=== PATIENT | male | born 1970 | race Caucasian/White ===

== ENCOUNTER 2017-07-02 14:29 | Inpatient (IN) ==
--- NOTE | 2017-07-01 22:33 | Discharge Summary ---
<Whitney Addison E - Last Filed: 07/01/17 22:31> Date of Encounter: 07/01/17 - Discharge Diagnosis (1) Painful orthopaedic hardware Priority: Primary Status: Chronic (2) History of total right hip arthroplasty Priority: Primary Status: Chronic (3) HTN (hypertension) Priority: Secondary Status: Chronic Qualifiers: Hypertension type: unspecified Qualified Code(s): I10 - Essential (primary ) hypertension (4) Diabetes mellitus Priority: Secondary Status: Chronic Qualifiers: Diabetes mellitus type: type 2 Diabetes mellitus complication status: with unspecified complications Diabetes mellitus chcf insulin use: without chcf use Qualified Code(s): E11.8 - Type 2 diabetes mellitus with unspecified complications (5) Gout Priority: Secondary Status: Chronic Qualifiers: Gout site: unspecified site Gout etiology: unspecified cause Chronicity: unspecified Qualified Code(s): M10.9 - Gout, unspecified (6) Obesity Priority: Secondary Status: Chronic Qualifiers: Obesity type: unspecified obesity type Obesity classification: unspecified obesity classification Serious obesity comorbidity presence: unspecified whether serious comorbidity present Qualified Code(s): E66.9 - Obesity, unspecified (7) Status post right hip replacement Priority: Primary Status: Acute - Discharge Medications Home Medications: Allopurinol [Zyloprim 100 MG] 100 mg PO HS 08/18/15 [History] Cetirizine HCl [Zyrtec] 10 mg PO DAILY 08/18/15 [History] Gabapentin [Neurontin] 100 mg PO BID 08/18/15 [History] Lisinopril/Hydrochlorothiazide [Zestoretic 10-12.5 mg Tablet] 1 each PO DAILY [History] Metoprolol [Lopressor] 50 mg PO BID 08/18/15 [History] Alogliptin Benzoate [Alogliptin] 12.5 mg PO DAILY 01/17/17 [History] Atorvastatin [Lipitor] 10 mg PO HS 01/17/17 [History] Baclofen 10 - 20 mg PO TID PRN 01/17/17 [History] Docusate [Colace] 100 mg PO BID #60 capsule 01/17/17 [Rx] Glimepiride [Amaryl] 1 mg PO DAILY 03/19/17 [History] HYDROcodone/Acet 7.5/325 mg [[place] 7.5-325 mg] 1 tab PO Q4H #30 tablet 03/19/17 [Rx] Dicyclomine [Bentyl] 10 mg PO QID PRN #40 capsule 05/16/17 [Rx] Aspirin Enteric Coated [Aspirin EC] 325 mg PO DAILY 21 Days #21 tablet. [Rx] HYDROcodone/Acet 5/325 mg [[place] 5-325 mg] 1 tab PO Q4-6H PRN 7 Days #35 tab 04/07 [Rx] Docusate [Colace] 100 mg PO BID PRN 07/02/17 [History] Ergocalciferol (VITAMIN D2) [Vitamin D2] 1,000 unit PO DAILY 07/02/17 [History] Gabapentin [Neurontin] 200 mg PO HS 07/02/17 [History] Allergies/Adverse Reactions: 3 Allergy/AdvReac Type Severity Reaction Status Date / Time Oxycodone [From Percocet] Allergy See Verified 03/19/17 10:20 Comments Primary care physician: KALIE Corral - Patient Status Disposition: Home, Self-Care Condition: Good - Discharge Instructions Follow Up With: Darby Garcia CNP [Primary Care Provider] - - Hospital Course Hospital course: Mr. Meza is a 46 year old male - Time Spent with Patient Total time spent providing and/or coordinating discharge services: <Leonardo Toscano - Last Filed: 07/03/17 06:19> Date of Encounter: 07/03/17 Time of Encounter: 06:19 - Discharge Diagnosis (1) Gout Priority: Secondary Status: Chronic Qualifiers: Gout site: unspecified site Gout etiology: unspecified cause Chronicity: unspecified Qualified Code(s): M10.9 - Gout, unspecified (2) Hypertension Priority: Secondary Status: Chronic Qualifiers: Hypertension type: essential hypertension (3) Obesity (BMI 35.0-39.9 without comorbidity) Priority: Secondary Status: Chronic (4) Painful orthopaedic hardware Priority: Primary Status: Chronic (5) History of total right hip arthroplasty Priority: Secondary Status: Chronic Labs on day of discharge: Labs from last 24 hours 07/02/17 14:56 POC Glucose 113 H Primary care physician: KALIE Corral - Patient Status Functional capacity at discharge: uses cane/walker Overall status at discharge: patient is progressing back to baseline - Hospital Course Hospital course: Mr. Meza is a 46 year old male Status post revision right total hip. The patient had an uneventful postoperative course. They received antibiotics and physical therapy and were discharged in stable condition. There will follow -up in the office in 2 weeks. - Time Spent with Patient Total time spent providing and/or coordinating discharge services:
[2017-07-02] MEDS ORDERED: CeFAZolin Syr 2,000MG/20 ML 2,000 MG/20 ML SYRINGE IVPB ONE (15:20)
--- NOTE | 2017-07-02 15:21 | Anesthesia Evaluation PreOp ---
Date of Encounter: 07/02/17 Time of Encounter: 15:18 - Past History Planned Operation: Robotic R-Total Hip Revision Cardiac History: HTN (maintained on Lisinopril-Hctz, Metoprolol), Hyperlipidemia (maintaned on Atoravastatin), Other (ECHO 08/2015 - Impressions: Technically sub-optimal due to poor echocardiographic windows. LVEF >70%. Normal LV chamber size, wall thickness, and hyperdynamic systolic function. Mild left ventricular diastolic dysfunction. Normal right ventricular structure and function. Unable to estimate RVSP due to lack of TR jet. 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: Other (Chronic Pain/Neuropathy maintained on Gabapentin) Other Medical History: Renal (Hx of kidney stones), Diabetes Type II ( maintained on Alogliptin, Glimepiride) Anesthesia History: No Prior Anesthetic Complications, Past Anesthesia (R-Total Hip x 2, L-wrist, R-knee ACL reconstruction, Revision R-total hip, Abby, Kidney stones extractions, Colon resectrion re: perfed diverticulum), Problems ( PONV) Alcohol Use: rarely Drug use: none Medications and Allergies Allopurinol [Zyloprim 100 MG] 100 mg PO HS 08/18/15 [History] Cetirizine HCl [Zyrtec] 10 mg PO DAILY 08/18/15 [History] Gabapentin [Neurontin] 100 mg PO BID 08/18/15 [History] Lisinopril/Hydrochlorothiazide [Zestoretic 10-12.5 mg Tablet] 1 each PO DAILY [History] Metoprolol [Lopressor] 50 mg PO BID 08/18/15 [History] Alogliptin Benzoate [Alogliptin] 12.5 mg PO DAILY 01/17/17 [History] Atorvastatin [Lipitor] 10 mg PO HS 01/17/17 [History] Baclofen 10 - 20 mg PO TID 01/17/17 [History] Docusate [Colace] 100 mg PO BID #60 capsule 01/17/17 [Rx] Docusate [Colace] 100 mg PO BID #30 capsule 03/19/17 [Rx] Ergocalciferol (VITAMIN D2) [Vitamin D2] 50,000 unit PO MO 03/19/17 [History] Glimepiride [Amaryl] 1 mg PO DAILY 03/19/17 [History] HYDROcodone/Acet 7.5/325 mg [[place] 7.5-325 mg] 1 tab PO Q4H #30 tablet 03/19/17 [Rx] Dicyclomine [Bentyl] 10 mg PO QID PRN #40 capsule 05/16/17 [Rx] Ondansetron ODT [Zofran ODT] 4 mg SL Q6HR PRN #14 tab.vernelldis 05/16/17 [Rx] Aspirin Enteric Coated [Aspirin EC] 325 mg PO DAILY 21 Days #21 tablet. [Rx] HYDROcodone/Acet 5/325 mg [[place] 5-325 mg] 1 tab PO Q4-6H PRN 7 Days #35 tab 04/07 [Rx] 3 Allergy/AdvReac Type Severity Reaction Status Date / Time Oxycodone [From Percocet] Allergy See Verified 03/19/17 10:20 Comments - Meds/Allergy Pre-op Review Medications Reviewed: Yes Allergies Reviewed: Yes Beta Blockers on Current Med List: Yes (Metoprolol) If Beta Blockers taken, Date/Time (Last Dose taken): 07/02/2017 @ 0900 Anesthesia Results - Labs Laboratory Tests 06/11/17 06/11/17 06/11/17 12:25 12:25 12:25 WBC 4.7 Hgb 13.1 Hct 38.5 Plt Count 166 PT 10.6 INR 1.0 APTT 30.0 Sodium 138 Potassium 3.8 Chloride 103 Carbon Dioxide 27 BUN 19 Creatinine 1.31 H Est GFR ( Amer) > 60 Est GFR (Non-Af Amer) 59 L BUN/Creatinine Ratio 15 POC Glucose Est Mean Plasma Glucose Hemoglobin A1c 06/11/17 07/02/17 12:25 14:56 WBC Hgb Hct Plt Count PT INR APTT Sodium Potassium Chloride Carbon Dioxide BUN Creatinine Est GFR ( Amer) Est GFR (Non-Af Amer) BUN/Creatinine Ratio POC Glucose 113 H Est Mean Plasma Glucose 120 Hemoglobin A1c 5.8 H Anesthesia Exam O2 Sat Height 1.75 m Height 1.75 m Weight 117.027 kg Weight 117.027 kg O2 Sat by Pulse Oximetry 95 Vital Signs Temp Pulse Resp BP Pulse Ox 97.4 F L 76 16 141/84 95 07/02/17 15:04 07/02/17 15:04 07/02/17 15:04 07/02/17 15:04 07/02/17 15:04 Height: 5'9" Weight: 258# BMI = 38 NPO (# of Hours): MNoc - HEENT Pupil (Motor): Pupils equal, EOMI Mallampati: II Teeth: Normal Oral Opening: Greater than 3 - ANALOG IC DESIGN ENGINEER LOC: Oriented ANALOG IC DESIGN ENGINEER Motor: Normal RUE, Normal LUE, Normal RLE, Normal LLE, Normal Face ANALOG IC DESIGN ENGINEER Sensory: Normal: RUE, LUE, RLE, LLE, Face - Cardiac Rhythm: Regular Murmur: None - Pulmonary Breath Sounds: bilateral Clear Respiratory Effort: Symmetrical Anesthesia Assess/Plan ASA Score: 3 Modified Philip Scale for Level of Consciousness: Cooperative, oriented, and tranquil Anesthetic Plan: Regional Monitoring Plan: Standard Monitors Recovery Plan: PACU Anes Supervising Prov Stmt: Pt seen/evaluated, R&B Discussed questions answered and consent obtained. Tika Feng MD
[2017-07-02] MEDS ORDERED: Scopolamine Patch 1.5 MG PATCH.TD72 TD ONE (15:31)
[2017-07-02] MEDS ORDERED: Acetaminophen IV 1,000 MG/100 ML INFUS..BTL IVPB ONE (15:31)
--- NOTE | 2017-07-02 16:36 | History & Physical Report ---
Date of Encounter: 07/02/17 Time of Encounter: 16:35 24 Hour HP Update - Instructions Instructions: If the History and Physical is less than 30 days old and was completed prior to A.M. admission and or procedure and has NOT been updated on calendar day of procedure please complete this update prior to performing procedure. - Update Patient reports changes in Medical Condition: No Changes in examination, assessment, or condition: No Changes in Medication: No Preop tests/diagnostics Reviewed: Yes Surgery Remains Indicated: Yes Consent for Planned Operative Procedure(s) Verified: Yes - Pre-Operative Checklist Preoperative Checklist Indicated: No Prophylactic Antibiotic Ordered: Yes Is VTE Prophylaxis Indicated?: Yes
[2017-07-02] MEDS: Ringers Solution, Lactated 1,000 ML IVC SCH ×2 (17:03→20:07)
[2017-07-02] MEDS ORDERED: Ethanol\\Acetic Acid\\Na Ace\\Ben 1,000 ML IRRIG.SOLN IR ONE (17:09)
[2017-07-02] MEDS ORDERED: Tetracaine/PF 20 MG/2 ML AMPUL ONE (18:20)
[2017-07-02] MEDS ORDERED: *HR* Morphine Sulfate/PF 10 MG/10 ML AMPUL ONE (18:20)
[2017-07-02] MEDS ORDERED: *HR* Propofol 200 MG/20 ML VIAL IVP ONE ×2 (18:30→19:48)
[2017-07-02] MEDS ORDERED: *HR* FentaNYL (PF) 100 MCG/2 ML VIAL ONE (18:30)
[2017-07-02] MEDS ORDERED: *HR* Midazolam HCl 2 MG/2 ML VIAL ONE (18:30)
[2017-07-02] MEDS ORDERED: EPHEDrine 50 MG/ML VIAL ONE (18:49)
[2017-07-02] MEDS ORDERED: *HR* PHENYLEPHRINE 1,000 MCG/10 ML SYRINGE IVP ONE (18:51)
[2017-07-02] MEDS ORDERED: *HR* EPINEPHrine 1 MG/10 ML SYRINGE ONE (18:52)
--- NOTE | 2017-07-02 18:58 | Anesthesia Procedures ---
Date of Encounter: 07/02/17 Time of Encounter: 18:24 Procedures: Anesthesia - Epidural/Spinal Patient ID/Chart reviewed: Yes Patient examined: Yes Consent Obtained: Yes Supplemental Oxygen: None/Room Air Sedation: Versed (mg): 2 Sedation: Fentanyl (mcg): 100 Site Prep: Aseptic Technique, Sterile prep and drape, 0.5% Chlorhexidine/Alcohol Patient position: upright Local Anesthetic: Lidocaine 1% Amount of Local Anesthetic used: 2 Interspace Used: L3-L4 Blood: No CSF: Yes Paresthesia: No Spinal Dose: 1.5ml tetracaine, 300mcg duramorph Procedure: vss though out, yuridia well
--- NOTE | 2017-07-02 19:35 | Orthopedic Operative Note ---
Date of procedure: 07/02/17 Pre-op diagnosis: Painful right total hip Post-op diagnosis: same Procedure: Procedure: Right revision acetabulum Total Hip Replacment Estimated blood loss: 200 cc Hardware: Metal and polyethylene replacement. Daron acetabular dual mobility liner 28/52 46 Ness head Starr 20+7 head Procedural Notes: Patient with a well fixed acetabulum and a well fixed femoral component bone scan reviewed intraoperative negative for loosening patient had screws removed from acetabular component and converted from a ceramic head to do mobility option. Operative procedure: The patient was brought to the operating room and placed on the operating room table. After spinal anesthesia was administered the patient was placed in the lateral decubitus position with the operative right leg up. All pressure points were padded appropriately and the head was stabilized in the neutral position. The operative extremity was prepped and draped in the sterile surgical fashion patient received IV antibiotic prior to skin incision. A standard posterior approach is made to the operative hip, incorporating part of the old incision, incision was made through the skin and subcutaneous tissue hemostasis was obtained with Bovie cautery. Using careful sharp dissection the fascia was identified and incised patient had extensive scar tissue which was excised had no evidence of infection cultures and Gram stain were obtained at this time. The hip was dislocated the patient had a well positioned well fixed femoral component. This had also been determined at his previous surgery. Patient's complaint were entirely groin in nature. Attention was then turned to the acetabulum. The Ness was removed followed by 3 screws. The central insertion device was seated and the pelvis was rock. The acetabular component was well fixed. Decision was made at this point to avoid extensive trauma to the acetabulum and to convert the patient from a ceramic on Ness 20 dual mobility component type prosthesis. The 52/28 metal liner was seated. Trial revealed excellent motion and stability with a +7 head trial head was removed real head in appropriate polydipsia was seen and secured hip was reduced The patient had apparent equal leg lengths. The hip had excellent stability with forward flexion to 90 degrees adduction of 30 degrees and internal rotation of 60 degrees. The hip had no shuck. The set for 1 minute with antibacterial solution. It was irrigated out with 2 L of pulse irrigation. The hip was closed by the PA. The deep tissue was irrigated and closed deep with #1 PDS suture superficially with 0 PDS suture and skin was closed with Dermabond and skin mely. The patient was placed in a sterile dressing and abduction pillow. The patient was extubated and transferred to the recovery room in stable condition. Anesthesia: GETA, spinal Surgeon: Leonardo Toscano Was there an rehab assistant present: No Estimated blood loss (cc): 200 Condition: stable Disposition: PACU
[2017-07-02 20:38] LABS: Hematocrit 32.9 % (37.5-50.1); Hemoglobin 11.2 g/dL (12.9-16.9)
--- NOTE | 2017-07-02 20:43 | Anesthesia Evaluation Post Op ---
Date of Encounter: 07/02/17 Time of Encounter: 20:38 - Vital Signs Vital Signs: vss - Lungs Lungs: Clear Ascult./Percussion - Airway Airway: Non-obstructed - Cardiovascular Baseline Rhythm - Mental Status Mental Status: Alert & Oriented, Answers Appropriately - Pain Pain Scale used: [place] (Faces) - Nausea Vomiting Nausea Vomiting: Not Present - Hydration Hydration: Ice chips - Discharge PostOp Status: Transfer Patient to floor
[2017-07-02] MEDS ORDERED: Naloxone 0.4 MG/ML INJ IVP PRN (21:29)
[2017-07-02] MEDS ORDERED: Ringers Solution, Lactated 1,000 ML IVC SCH (21:29)
[2017-07-02] MEDS ORDERED: Temazepam 15 MG CAPSULE PO PRN (21:29)
[2017-07-02] MEDS ORDERED: Ondansetron 4 MG/2 ML VIAL IVP PRN (21:29)
[2017-07-02] MEDS ORDERED: Sennosides 8.6 MG TABLET PO PRN (21:29)
[2017-07-02] MEDS ORDERED: MOM Conc 10 ML UD.LIQ PO PRN (21:29)
[2017-07-02] MEDS ORDERED: MORPHINE SUL Oral CONC 10 MG/0.5 ML ORAL.SYG SL PRN (21:34)
[2017-07-02] MEDS ORDERED: Baclofen 10 MG TABLET PO PRN (21:59)
[2017-07-02] MEDS: Gabapentin 100 MG CAPSULE PO SCH (22:53)
[2017-07-02] MEDS: Ascorbic Acid 500 MG TABLET PO SCH (22:54)
[2017-07-02] MEDS: Alogliptin Benzoate [Alogliptin] 12.5 MG PO SCH (22:54)
[2017-07-02] MEDS: *HR* HYDROcodone/Acet 5/325 mg TABLET PO PRN (22:54)
[2017-07-03] MEDS: CeFAZolin Premix DUPLEX 2,000 MG/50 ML BAG IVPB SCH ×2 (01:19→08:23)
[2017-07-03] MEDS: *HR* HYDROcodone/Acet 5/325 mg TABLET PO PRN (03:31)
--- NOTE | 2017-07-03 06:21 | Orthopedics Progress Note ---
Date of Encounter: 07/03/17 Time of Encounter: 06:20 - Assessment and Plan (1) Gout Current Visit: No Status: Chronic Qualifiers: Gout site: unspecified site Gout etiology: unspecified cause Chronicity: unspecified Qualified Code(s): M10.9 - Gout, unspecified (2) Obesity (BMI 35.0-39.9 without comorbidity) Current Visit: No Status: Chronic (3) Painful orthopaedic hardware Current Visit: No Status: Chronic (4) History of total right hip arthroplasty Current Visit: No Status: Chronic Subjective Interval history: Patient was seen this morning doing well without complaints. Afebrile vital signs stable. Operative extremity: Neurovascularly intact Dressing clean dry and intact Calves nontender Assessment and plan: Continue with postoperative care Hematocrit 35 discharged today Objective Vital signs: Vital Signs Temp Pulse Resp BP Pulse Ox 07/03/17 04:44 98.8 F 88 14 124/78 100 07/02/17 23:39 98.1 F 88 15 104/61 95 07/02/17 22:37 97.5 F L 96 15 133/84 95 07/02/17 21:47 98.5 F 89 15 142/76 97 07/02/17 21:00 97.6 F 85 15 122/74 99 07/02/17 20:41 98.2 F 86 14 119/71 98 07/02/17 20:30 98.2 F 89 12 144/58 99 07/02/17 20:20 91 12 134/68 99 07/02/17 20:10 90 14 123/65 98 07/02/17 20:00 98.8 F 101 10 129/66 98 07/02/17 18:26 68 16 127/71 98 07/02/17 15:04 97.4 F L 76 16 141/84 95 Intake and Output 07/02/17 07/02/17 07/03/17 15:59 23:59 07:59 Intake Total 950 / 950 850 / 850 Output Total 200 / 200 0 / 0 Balance 750 / 750 850 / 850 Intake: IV Fluids 950 / 950 50 / 50 Lactated Ringers 1,000 ML @ 25 950 / 950 mls/hr IVC .Q24H [facility] Rx#: [id number] Ancef Premix DUPLEX 2,000 mg In 50 / 50 50 ml @ 100 mls/hr IVPB Q8HR [facility]RA Rx#:[id number] Oral 800 / 800 Output: Urine 0 / 0 Estimated Blood Loss 200 / 200 Other: Weight 117.027 kg Blood Glucose* 113 156 - Labs CBC & BMP: 07/02/17 20:13 Labs: Abnormal lab results Hgb 11.2 g/dL (12.9-16.9) L 07/02/17 20:13 Hct 32.9 % (37.5-50.1) L 07/02/17 20:13 POC Glucose 156 (58-89) H 07/02/17 21:09 - VTE Documentation of Mechanical Device: Venous foot pump, device Consult Discharge Plan - Plan Referrals: Darby Garcia, HIGHWAY TECHNICIAN [Primary Care Provider] -
[2017-07-03 07:56] LABS: Hematocrit 34.9 % (37.5-50.1)
[2017-07-03] MEDS: *HR* HYDROcodone/Acet 10/325 mg TABLET PO PRN ×3 (08:22→21:15)
[2017-07-03] MEDS: *HR* Glimepiride 2 MG TABLET PO SCH (08:22)
[2017-07-03] MEDS: Gabapentin 100 MG CAPSULE PO SCH ×3 (08:22→21:15)
[2017-07-03] MEDS: Loratadine 10 MG TABLET PO SCH (08:23)
[2017-07-03] MEDS: Multivit/Ca/Min/Fe/FA 1 TAB TABLET PO SCH (08:23)
[2017-07-03] MEDS: Cholecalciferol (D-3) 1,000 UNIT TABLET PO SCH (08:23)
[2017-07-03] MEDS: Ascorbic Acid 500 MG TABLET PO SCH ×2 (08:23→16:41)
[2017-07-03] MEDS: Alogliptin Benzoate [Alogliptin] 12.5 MG PO SCH (08:24)
[2017-07-03 08:55] LABS: BUN/Creatinine Ratio 15 (6-26); Blood Urea Nitrogen 19 mg/dL (6-20); Calcium 8.9 mg/dL (8.6-10.3); Carbon Dioxide 23 mEq/L (23-29); Chloride 101 mEq/L (98-107); Glucose 171 mg/dL (70-105); Osmolality,Calculated 286 (280-300); Potassium 4.3 mEq/L (3.5-5.1); Sodium 135 mEq/L (136-145); eGFR For African Americans > 60 (> 60); eGFR For Non-African Americans > 60 (> 60)
[2017-07-03] MEDS: traMADol 50 MG TABLET PO PRN ×2 (13:17→19:28)
[2017-07-03] MEDS: *HR* Enoxaparin 30 MG/0.3 ML SYRINGE SQ SCH (16:41)
--- NOTE | 2017-07-03 17:51 | Event Note ---
Date of Encounter: 07/03/17 Time of Encounter: 12:25 PCR- POD#1 Revision hip right PCR - Patient seen at bedside. Pain control: Adequate Participating in PT. All questions and concerns addressed. Educated on use of incentive spirometer, ambulation, and hydration. Patient educated on post-operative restrictions and care. Addressed: pain - patient wishing to stay tonight D/C plan: home with outpatient tomorrow secondary to patient request for pain control
[2017-07-04] MEDS: *HR* HYDROcodone/Acet 10/325 mg TABLET PO PRN (03:27)
--- NOTE | 2017-07-04 05:58 | Orthopedics Progress Note ---
Date of Encounter: 07/04/17 Time of Encounter: 05:57 - Assessment and Plan (1) Gout Current Visit: No Status: Chronic Qualifiers: Gout site: unspecified site Gout etiology: unspecified cause Chronicity: unspecified Qualified Code(s): M10.9 - Gout, unspecified (2) Obesity (BMI 35.0-39.9 without comorbidity) Current Visit: No Status: Chronic (3) Painful orthopaedic hardware Current Visit: No Status: Chronic (4) History of total right hip arthroplasty Current Visit: No Status: Chronic Subjective Interval history: Patient was seen this morning doing well without complaints. Afebrile vital signs stable. Operative extremity: Neurovascularly intact Dressing clean dry and intact Calves nontender Assessment and plan: Continue with postoperative care discharged today Objective Vital signs: Vital Signs Temp Pulse Resp BP Pulse Ox 07/03/17 23:26 97.9 F 73 14 113/65 99 07/03/17 19:09 98.2 F 76 104/65 94 07/03/17 15:00 98.4 F 61 16 99/59 96 07/03/17 11:57 98.3 F 80 16 120/69 98 07/03/17 07:21 97.7 F 93 16 117/73 95 Intake and Output 07/03/17 07/03/17 07/04/17 15:59 23:59 07:59 Intake Total 300 / 300 Output Total 100 / 100 450 / 450 1000 / 1000 Balance -100 / -100 -150 / -150 -1000 / -1000 Intake: Oral 300 / 300 Output: Urine 100 / 100 450 / 450 1000 / 1000 Other: Meal Breakfast Percent of Meal Consumed 100% # Voids 1 1 Blood Glucose* 139 167 - Labs CBC & BMP: 07/03/17 06:36 07/03/17 06:36 Labs: Abnormal lab results Hgb 12.0 g/dL (12.9-16.9) L 07/03/17 06:36 Hct 34.9 % (37.5-50.1) L 07/03/17 06:36 Sodium 135 mEq/L (136-145) L 07/03/17 06:36 Glucose 171 mg/dL (70-105) H 07/03/17 06:36 POC Glucose 141 (58-89) H 07/03/17 16:38 - VTE Documentation of Mechanical Device: Venous foot pump, device Consult Discharge Plan - Plan Referrals: Darby Garcia, SLURRY BLENDER [Primary Care Provider] -
[2017-07-04 06:07] LABS: Hemoglobin 10.3 g/dL (12.9-16.9)
[2017-07-04] MEDS: *HR* Enoxaparin 30 MG/0.3 ML SYRINGE SQ SCH (06:27)
[2017-07-04 06:34] LABS: BUN/Creatinine Ratio 20 (6-26); Blood Urea Nitrogen 23 mg/dL (6-20); Calcium 8.9 mg/dL (8.6-10.3); Carbon Dioxide 30 mEq/L (23-29); Chloride 102 mEq/L (98-107); Glucose 157 mg/dL (70-105); Osmolality,Calculated 289 (280-300); Potassium 3.8 mEq/L (3.5-5.1); Sodium 136 mEq/L (136-145); eGFR For African Americans > 60 (> 60); eGFR For Non-African Americans > 60 (> 60)
[2017-07-04 07:04] VITALS: BP 117/68
[2017-07-04] MEDS: *HR* Glimepiride 2 MG TABLET PO SCH (08:01)
[2017-07-04] MEDS: Multivit/Ca/Min/Fe/FA 1 TAB TABLET PO SCH (08:01)
[2017-07-04] MEDS: Gabapentin 100 MG CAPSULE PO SCH (08:01)
[2017-07-04] MEDS: Loratadine 10 MG TABLET PO SCH (08:01)
[2017-07-04] MEDS: Cholecalciferol (D-3) 1,000 UNIT TABLET PO SCH (08:02)
[2017-07-04] MEDS: Ascorbic Acid 500 MG TABLET PO SCH (08:02)
[2017-07-04] MEDS: traMADol 50 MG TABLET PO PRN (08:02)
[2017-07-04] MEDS ORDERED: (Alogliptin Benzoate [Alogliptin] 12.5 MG) PO SCH (09:00)
== END 2017-07-04 08:56 | disposition home or self-care (01) | DRG 301 ==
LOC: SAMDAY 14:29 → 3NENU 21:16
PROVIDERS: ADMIT Orthopaedic Surgery; ATTEND Orthopaedic Surgery